=== PATIENT | female | born 1960 | race Caucasian/White ===

== ENCOUNTER → 2017-12-12 | Outpatient (CLI) | payer BC | LOC: CARD 13:52 | PROVIDERS: ATTEND Internal Medicine Cardiovascular Disease | DX: I10 Essential (primary) hypertension (principal); R07.9 Chest pain, unspecified; R53.83 Other fatigue; E78.2 Mixed hyperlipidemia; R00.2 Palpitations; E13.9 Other specified diabetes mellitus without complications | CPT/HCPCS: 93306 ==

== ENCOUNTER → 2017-12-17 | Outpatient (CLI) | payer BC ==
[~2017-12-17] MED LIST: CATHETER FLUSH 10 ML SYR IV PRN
[2017-12-17 13:38] VITALS: BP 170/100
[2017-12-17 13:47] VITALS: BP 157/97
--- NOTE | 2017-12-17 18:01 | STRESS TEST ---
DATE OF SERVICE: 12/17/2017 EXERCISE MYOVIEW STRESS TEST REPORT REFERRING PHYSICIAN: . Baseline heart rate is 62. Baseline blood pressure 156/79. Baseline EKG is sinus rhythm with no ischemic changes. In summary, the patient was injected with 9.87 mCi of technetium-99 Myoview and the resting images were obtained. Then, the patient started exercising with a baseline heart rate, blood pressure and EKG mentioned above. The patient was able to exercise for a total of 6 minutes on standard [employer] protocol, achieving maximum heart rate of 126. With peak exercise level, EKG was showing minimal nondiagnostic changes. Blood pressure was 174/94. During recovery, heart rate and blood pressure returned to baseline. EKG returned to baseline. The resting and stress images were reviewed and compared in the short axis, horizontal long axis, and vertical long axis views. Review of the images showed breast attenuation affecting the quality of the images. There is decreased uptake involving the whole inferior wall that was noted at the stress images with mild reversibility. SSS is 8, SDS 8, TID value 0.95. On the gated images, the left ventricle appeared to be in normal size with normal contractility. Calculated ejection fraction 71%. CONCLUSION: 1. Fair exercise tolerance, a total of 6 minutes on standard U[employer] protocol, achieving 85% of maximum expected heart rate. 2. Severe hypertensive response to exercise returned to baseline during recovery. 3. Nondiagnostic EKG changes with exercise returned to baseline during recovery. 4. Breast attenuation affecting the quality of the images with questionable ischemia involving the whole anterior wall. 5. Normal left ventricular size with normal contractility. Calculated ejection fraction 71%. Job ID: [id number] DocumentID: [id number] Dictated Date: 12/17/2017 15:25:23 Propeller Tester Date: 12/17/2017 18:00:24 Dictated By: LORENZO CHAPIN MD
== END ==
LOC: CARD 11:20 → EDUNIT# 11:45
PROVIDERS: ATTEND Internal Medicine Cardiovascular Disease
DX: R07.9 Chest pain, unspecified (principal); I10 Essential (primary) hypertension; R00.2 Palpitations; E78.2 Mixed hyperlipidemia; E11.9 Type 2 diabetes mellitus without complications; R53.83 Other fatigue
CPT/HCPCS: 78452; 93017

== ENCOUNTER 2017-12-31 06:51 | Day surgery (SDC) | payer BC ==
[~2017-12-31] VITALS: Ht 160 cm; Wt 100.2 kg
[2017-12-31] VITALS (11 sets, daily range): BP systolic 107–164; BP diastolic 69–93
[2017-12-31] MEDS ORDERED: NS IV 1000 ML 1,000 ML ONE (06:54)
[2017-12-31] MEDS ORDERED: LIDOCAINE 1% INJ 50 ML (XYLOCAINE) VIAL ONE (06:54)
[2017-12-31] MEDS ORDERED: HEParin (CATH LAB) 2,000 ML IV ONE (06:54)
[2017-12-31] MEDS ORDERED: NS IV 1000 ML 1,000 ML IV SCH ×2 (07:15→08:30)
--- NOTE | 2017-12-31 07:23 | Diagnostic Imaging Report ---
CHEST 1 VIEW, AP/PA ONLY Indication: Hypertension. Preop evaluation. Comparison: None available. Findings: No focal airspace disease in the visualized lungs. Please note that the posterior lower lobes are poorly evaluated by portable radiography. No pleural effusion or pneumothorax. Heart is borderline enlarged. Impression: No acute cardiopulmonary process by portable radiography. Dictated by: Dictated on workstation # [id number]
[2017-12-31 07:29] LABS: HEMOGLOBIN 13.9 G/DL (11.5-16.0); MEAN PLATELET VOLUME 10.3 FL (7.4-10.4); RED BLOOD COUNT 4.91 10^6/uL (4.35-5.85); RED CELL DISTRIBUTION WIDTH 14.3 % (10.0-14.5); WHITE BLOOD COUNT 7.6 10^3/uL (4.3-11.0)
[2017-12-31] MEDS ORDERED: METF500T4 PO (07:32)
[2017-12-31] MEDS ORDERED: LOSA100T28 PO (07:32)
[2017-12-31] MEDS ORDERED: ASPI-983 PO (07:32)
[2017-12-31] MEDS ORDERED: ATOR10TA66 PO (07:32)
[2017-12-31] MEDS ORDERED: AMLO5TAB2 PO (07:32)
[2017-12-31] MEDS ORDERED: METO50TA15 PO (07:32)
[2017-12-31 07:38] LABS: PROTHROMBIN TIME PATIENT 13.4 SEC (12.2-14.7)
[2017-12-31 07:46] LABS: ALANINE AMINOTRANSFERASE 21 U/L (0-55); ALBUMIN 4.3 GM/DL (3.2-4.5); ALKALINE PHOSPHATASE 74 U/L (40-136); BILIRUBIN,TOTAL 0.8 MG/DL (0.1-1.0); BUN/CREATININE RATIO 19; CALCIUM 9.5 MG/DL (8.5-10.1); CARBON DIOXIDE 22 MMOL/L (21-32); CHLORIDE 106 MMOL/L (98-107); CREATININE SERUM 0.78 MG/DL (0.60-1.30); GFR ESTIMATED > 60; GLUCOSE 148 MG/DL (70-105); POTASSIUM 3.8 MMOL/L (3.6-5.0); SODIUM 141 MMOL/L (135-145); TOTAL PROTEIN 7.3 GM/DL (6.4-8.2)
[2017-12-31] MEDS ORDERED: MIDAZOLAM 5 MG/5 ML (VERSED) VIAL ONE (07:53)
[2017-12-31] MEDS ORDERED: fentaNYL INJECTION 100 MCG/2 ML AMP ONE (07:55)
[2017-12-31] MEDS ORDERED: INFLUENZA TRIvalent 2017-2018 0.5 ML/45 MCG SYR IM ONE (08:00)
--- NOTE | 2017-12-31 08:05 | Cardiac Procedure Note-CS/ASA ---
Pre-Procedure Note Pre-Op Procedure Note H&P Reviewed The H&P was reviewed, patient examined and no changes noted. Date H&P Reviewed: Dec 31, 2017 Time H&P Reviewed: 08:05 Conscious Sedation Pre-Proced Time Reviewed: 08:05 ASA Class: 3 Airway Mallampati Classification: ([place] appropriate class) I. II. III, IV Lungs Heart ASA score ASA 1: a normal healthy patient ASA 2: a patient with a mild systemic disease (mid diabetes, controlled hypertension, obesity x ASA 3: a patient with a severe systemic disease that limits activity (angina , COPD, prior Myocardial infarction) ASA 4: a patient with an incapacitating disease that is a constant threat to life (CHF, renal failure) ASA 5: a moribund patient not expected to survive 24 hrs. (ruptured aneurysm) ASA 6: a declared brain patient whose organs are being harvested. For emergent operations, add the letter E after the classification Grade 3 Sedation Plan: Analgesia, Amnesia, Plan communicated to team members, Discussed options with patient/fam, Discussed risks with patient/fam Note The patient is an appropriate candidate to undergo the planned procedure, sedation, and anesthesia. The patient immediately re-assessed prior to indication. LORENZO CHAPIN MD Dec 31, 2017 08:05
[2017-12-31] MEDS ORDERED: PATIENT MAY USE OWN MEDS, ALL PO SCH (08:30)
--- NOTE | 2017-12-31 08:33 | Discharge Inst-Post CATH ---
Discharge Inst-CATH Post Cardiac Cath D/C Inst Follow Up/Plan Hold Metformin for [address] Aguillon's office in 2-4 weeks CARDIAC CATH DISCHARGE INSTRUCTIONS *Hold Metformin for 48 hours post heart cath. ACTIVITY * Go Home directly and rest. * Limit activity of the leg (or wrist if it was used) for 7 days including aerobics, swimming, jogging, bicycling, etc. * Restrict stair-climbing for 7 days if possible, if not, climb up with your non -cath leg, then bring together on the same step. * Avoid lifting, pushing, pulling or excessive movement of the affected extremity for 7 days. * Customary sexual activity may be resumed after 2 days-use caution not to use a position that strains or causes pain to the affected extremity. * No driving for 24 hours. * NO SMOKING. * Avoid straining for bowel movements for 7 days. * Gentle walking on level ground is allowed. * Returning to work will depend on the type of procedure and the results. Your doctor will discuss this with you. CALL YOUR DOCTOR FOR ANY OF THE FOLLOWING: *If bleeding from the puncture site occurs- Apply gentle pressure to site with clean cloth and call your doctor or EMS. * If a knot or lump forms under the skin, increases in size, or causes pain. * If bruising appears to be worsening or moving further down your leg instead of disappearing. * Temperature above 101 F. CARE OF YOUR GROIN INCISION; * Bruising or purple discoloration of the skin near the puncture site is common. * You may shower only, no bathtub bathing for 5 days. Be careful to avoid slipping as your leg may feel stiff. * If a closure device was used on your femoral artery, please see the attached guide regarding care of the device and your leg. * REMOVE the dressing from your groin the next day after your procedure in the shower. CARE OF YOUR WRIST INCISION; * Bruising or purple discoloration of the skin near the puncture site is common. * You may shower. * DO NOT submerge wrist. * Remove dressing in 24 hours. LORENZO AGUILLON MD Dec 31, 2017 08:33
--- NOTE | 2017-12-31 08:36 | Cardiac Cath Report ---
Cardiac Cath Report Physician (s)/Carpet Cleaner (s) Physician LORENZO CHAPIN MD Pre-Procedure Diagnosis Pre-Procedure Diagnosis: Coronary artery disease Post-Procedure Note Procedure Start Date: Dec 31, 2017 Name of Procedure: [facility] Findings/Procedure Note PROCEDURE NOTE: After explaining the procedure to the patient, all pros and cons were explained, all questions were answered. The patient signed the consent and then she was placed on the cardiac catheterization laboratory. The patient was placed on the cardiac catheterization laboratory. Groin was prepped SL fashion local anesthesia was used. Sheath placed in the right femoral artery. Tremaine right and left catheter were used to access the coronary system. Tremaine right was used to cross the valve and left ventricular pressure was measured Left ventriculogram was not done At the end of the procedure the sheath was removed. Closure device was used FINDINGS: Hemodynamics LV 136/17, end-diastolic pressure of 17 Aorta 134/68 mean of 97 ANATOMY: Left Main is free of obstructive disease Left Anterior Descending has mild disease at the mid to distal portion nonobstructive disease Left Circumflex is free of obstructive disease Right Coronory Artery is free of obstructive disease LV Gram was not done, pressure was measured no significant gradient across the aortic valve CONCLUSION: 1. Mild coronary artery disease in the LAD nonobstructive disease otherwise no significant disease noted 2. Mildly elevated left ventricular end-diastolic pressure DISCUSSION AND RECOMMENDATION: Medical therapy is recommended no intervention is warranted Anesthesia Type: Conscious Sedation Estimated blood loss (mL): 10 ml Contrast Amount: 23 ml Total Radiation Dose: 223 mGy Post-Procedure Diagnosis Post-operative diagnosis: Coronary artery disease Hypertension Hyperlipidemia Diabetes mellitus LORENZO CHAPIN MD Dec 31, 2017 08:36
== END 2017-12-31 13:10 | disposition home or self-care (01) ==
LOC: CATH 06:51 → SURG 08:47 → CATH 13:10
PROVIDERS: ATTEND Internal Medicine Cardiovascular Disease
DX: I25.10 Atherosclerotic heart disease of native coronary artery without angina pectoris (principal); Z11.2 Encounter for screening for other bacterial diseases; I10 Essential (primary) hypertension; E78.2 Mixed hyperlipidemia; E11.9 Type 2 diabetes mellitus without complications; Z79.84 Long term (current) use of oral hypoglycemic drugs; Z79.82 Long term (current) use of aspirin; Z79.899 Other long term (current) drug therapy; E66.9 Obesity, unspecified; Z68.39 Body mass index [BMI] 39.0-39.9, adult; I65.29 Occlusion and stenosis of unspecified carotid artery
CPT/HCPCS: 36415; 71045; 80053; 85027; 85610; 85730; 87081; 93458

== ENCOUNTER 2018-01-04 09:53 | Emergency (ER) | payer BC ==
[~2018-01-04] VITALS: Ht 160 cm; Wt 100.2 kg
[~2018-01-04 09:53] MED LIST changes: +AMLO5TAB2 PO; +ASPI-983 PO; +ATOR10TA66 PO; -CATHETER FLUSH 10 ML SYR IV PRN; +LOSA100T28 PO; +METF500T4 PO; +METO50TA15 PO
[2018-01-04 10:57] VITALS: BP 145/73
--- NOTE | 2018-01-04 11:38 | ED General ---
General Chief Complaint: Skin/Wound Problems Stated Complaint: LUMP AT HEART CATH INCISION Nursing Triage Note: PT HERE WITH C/O LUMP AT CATH SITE ON RIGHT GROIN. CATH WAS ON 12/31/17 Nursing Sepsis Screen: No Definite Risk Source of Information: Patient, Family (daughter) Exam Limitations: No Limitations History of Present Illness Date Seen by Provider: Jan 04, 2018 Time Seen by Provider: 11:38 Initial Comments 57-year-old female patient presents to the emergency department with complaints of a lump and pain to the right groin catheter site. Heart catheterization was done on 12/31/[address] Aguillon. Patient did take Tylenol yesterday with improvement in symptoms. Patient is scheduled for follow-up on January [address] Aguillon. Reports that she initially did not plan on coming to the emergency department, but states her home instructions said to come to the ER if any increased swelling or pain. Timing/Duration: 1-2 Days Modifying Factors: worse with Movement, worse with Other (worse with palpation) Allergies and Home Medications Allergies Coded Allergies: No Known Drug Allergies (Unverified , 12/31/17) Home Medications Amlodipine Besylate 5 Mg Tablet, 5 MG PO DAILY, (Reported) Aspirin 81 Mg Tablet.dr, 81 MG PO DAILY, (Reported) Atorvastatin Calcium 10 Mg Tablet, 10 MG PO DAILY, (Reported) Losartan Potassium 100 Mg Tablet, 100 MG PO DAILY, (Reported) Metoprolol Tartrate 50 Mg Tablet, 50 MG PO BID, (Reported) Tramadol HCl 50 Mg Tablet, 50 MG PO Q4H PRN for pain Prescribed by: [facility] VANESSA on 01/04/18 1226 Constitutional: No chills, No diaphoresis, No dizziness, No fever, No malaise, No weakness EENTM: no symptoms reported Respiratory: No cough, No dyspnea on exertion, No short of breath Cardiovascular: No chest pain, No edema, No palpitations Gastrointestinal: No abdominal pain, No constipation, No diarrhea, No loss of appetite, No melena, No nausea, No vomiting Genitourinary: see HPI, No decreased output, No discharge, No dysuria, No frequency, No hematuria, No incontinence, pain (right groin pain, swelling, and mild bruising) Musculoskeletal: see HPI, other (right groin pain, swelling, and mild bruising) Skin: see HPI, change in color (mild bruising of the right groin), lumps ( right groin) Psychiatric/Neurological: No Symptoms Reported Hematologic/Lymphatic: No Symptoms Reported All Other Systems Reviewed Negative Unless Noted: Yes (Negative excepted noted.) Past Ffcyaoi-Pqztjw-Fvbhsd Hx Patient Social History Recent Foreign Travel: No Contact w/Someone Who Travel: No Recent Infectious Disease Expo: No Recent Hopitalizations: No Physical Abuse: No Sexual Abuse: No Mistreated: No Fear: No Seasonal Allergies Seasonal Allergies: No Surgeries History of Surgeries: Yes (HEART CATH. ) Surgeries: Lumpectomy Respiratory History of Respiratory Disorde: No Cardiovascular History of Cardiac Disorders: Yes Cardiac Disorders: High Cholesterol, Hypertension Neurological History of Neurological Disord: No Reproductive System Sexually Transmitted Disease: No HIV/AIDS: No Genitourinary History of Genitourinary Disor: No Gastrointestinal History of Gastrointestinal Di: No Psychosocial Suicide Risk Score: 0 Integumentary History of Skin or Integumenta: No Reviewed Nursing Assessment Reviewed/Agree w Nursing PMH: Yes Family Medical History Significant Family History: No Pertinent Family Hx Physical Exam Vital Signs Vital Signs - First Documented 01/04/18 10:23 Temp 97.6 Pulse 58 Resp 18 B/P (MAP) 139/62 (87) Pulse Ox 97 O2 Delivery Room Air Capillary Refill : Less Than 3 Seconds General Appearance: No Apparent Distress, WD/WN HEENT: PERRL/EOMI, Pharynx Normal Neck: Normal Inspection, Supple Respiratory: Lungs Clear, Normal Breath Sounds, No Accessory Muscle Use, No Respiratory Distress Cardiovascular: Regular Rate, Rhythm, No Edema, No Murmur, Normal Peripheral Pulses Gastrointestinal: Normal Bowel Sounds, No Organomegaly, No Pulsatile Mass, Soft , Tenderness (rt groin tenderness, mild to moderate swelling, and mild ecchymosis. small scab at the puncture site. no evidence of cellulitis.) Back: Normal Inspection Extremity: Normal Capillary Refill, Normal Range of Motion, No Calf Tenderness , No Pedal Edema, Other (rt groin tenderness, mild to moderate swelling, and mild ecchymosis. small scab at the puncture site. no evidence of cellulitis.) Neurologic/Psychiatric: Alert, Oriented x3, No Motor/Sensory Deficits, Normal Mood/Affect Skin: Normal Color, Warm/Dry, No Cool, No Cyanosis, No Mottled, Other (rt groin tenderness, mild to moderate swelling, and mild ecchymosis. small scab at the puncture site. no evidence of cellulitis.) Progress/Results/Core Measures Suspected Sepsis Recent Fever Within 48 Hours: No Infection Criteria Present: None New/Unexplained Altered Menta: No Sepsis Screen: No Definite Risk Sepsis Diagnosis: SIRS Temperature:97.6 Pulse: 62 Respiratory Rate: 18 Blood Pressure 145 /73 Mean: 97 Results/Orders My Orders Orders - [facility] VANESSA Us Right Low Ext [id number] (01/04/18 11:30) Acetaminophen Tablet (Tylenol Tablet) (01/04/18 11:51) Alprazolam Tablet (Xanax Tablet) (01/04/18 13:30) Vital Signs/I&O Vital Sign - Last 12Hours 01/04/18 01/04/18 01/04/18 10:23 10:57 13:28 Temp 97.6 Pulse 58 62 63 Resp 18 18 18 B/P (MAP) 139/62 (87) 145/73 (97) 126/95 Pulse Ox 97 99 99 O2 Delivery Room Air Capillary Refill : Less Than 3 Seconds Blood Pressure Mean: 97 Diagnostic Imaging Diagonstic Imaging: Ultrasound Plain Films/CT/US/NM/MRI: leg (RLE arterial doppler) Comments COMPARISON: There are no prior studies available for comparison. FINDINGS: There is good arterial blood flow in the common femoral and superficial femoral arteries. There is no sign of a pseudoaneurysm or an AV fistula. The common femoral artery, common femoral vein, and superficial femoral vein were difficult to compress, but there did seem to be good blood flow. There is no sign of thrombus formation. There is no evidence for a hematoma either. IMPRESSION: There is no acute vascular abnormality in the right groin. Dictated on workstation # [id number] Reviewed: Reviewed by Me (radiology report reviewed by me) Departure Communication (Admissions) Progress Notes Diagnostic findings discussed with the patient. Plan for discharge to home with follow-up as an outpatient with Dr. Aguillon as previously scheduled or sooner if needed. Patient to return immediately to the emergency department for any concerns or worsening of symptoms. Impression Impression: Primary Impression: Groin hematoma Qualified Codes: S30.1XXA - Contusion of abdominal wall, initial encounter Additional Impression: Status post cardiac catheterization Disposition: 01 HOME, SELF-CARE Condition: Improved Departure-Patient Inst. Decision time for Depature: 12:23 Referrals: LORENZO AGUILLON MD, FLOYD R MD (PCP/Family) Primary Care Physician Patient Instructions: HEMATOMA Add. Discharge Instructions: All discharge instructions reviewed with patient and/or family. Voiced understanding. Continue usual home medications. Tylenol extra strength over- the-counter as directed for pain. If needed you may use the prescribed pain medication for pain. Ice packs alternating with a heating pad or pack as needed for pain. Expect to see more bruising in the groin and/or the thigh as the blood comes to the surface. Continue all other orders and instructions by Dr. Aguillon. Follow-up with Dr. Aguillon as an outpatient as previously scheduled or sooner if needed. Return to the emergency department immediately for worsened pain, swelling, redness, fever, drainage, or any other concerns. Scripts Tramadol HCl (Tramadol HCl) 50 Mg Tablet 50 MG PO Q4H Y for pain, #14 TAB 0 Refills Prov: [facility] VANESSA 01/04/18 MER[facility] VANESSA Jan 04, 2018 11:38
[2018-01-04] MEDS ORDERED: ACETAMINOPHEN 500 MG TAB (TYLENOL) PO STA (11:51)
[2018-01-04] MEDS ORDERED: TRAM50TA2 PO (12:26)
--- NOTE | 2018-01-04 12:37 | Diagnostic Imaging Report ---
EXAMINATION: Right lower extremity arterial Doppler. INDICATION: Leg pain. TECHNIQUE: Spectral and color flow imaging of the arterial system of the right groin was performed. By history, the patient underwent a cardiac catheterization procedure on 12/31/2017. At this time, she now complains of pain in the right groin. COMPARISON: There are no prior studies available for comparison. FINDINGS: There is good arterial blood flow in the common femoral and superficial femoral arteries. There is no sign of a pseudoaneurysm or an AV fistula. The common femoral artery, common femoral vein, and superficial femoral vein were difficult to compress, but there did seem to be good blood flow. There is no sign of thrombus formation. There is no evidence for a hematoma either. IMPRESSION: There is no acute vascular abnormality of the right groin. Dictated by: Dictated on workstation # [id number]
[2018-01-04 13:28] VITALS: BP 126/95
[2018-01-04] MEDS ORDERED: ALPRAZolam 0.25 MG (XANAX) TAB PO ONE (13:30)
== END 2018-01-04 13:22 | disposition home or self-care (01) ==
LOC: EDUNIT# 09:53 → ER 09:54
DX: S30.1XXA Contusion of abdominal wall, initial encounter (principal); I10 Essential (primary) hypertension; E78.00 Pure hypercholesterolemia, unspecified; Z79.82 Long term (current) use of aspirin; Z98.890 Other specified postprocedural states
CPT/HCPCS: 93926

== ENCOUNTER → 2018-09-28 | Outpatient (CLI) | payer BC ==
[~2018-09-28] MED LIST changes: -AMLO5TAB2 PO; +AMLO5TAB7 PO; -LOSA100T28 PO; +LOSA100T8 PO; +METF-397 PO; -METF500T4 PO; +TRAM50TA2 PO
--- NOTE | 2018-09-29 10:59 | Diagnostic Imaging Report ---
EXAMINATION: Ultrasound of the right breast INDICATION: Abnormal mammogram The diagnostic mammogram performed earlier today noted an area of architectural distortion in the retroareolar region of the right breast. On this exam there is no discrete mass evident in this area. There is no significant shadowing identified either. I suspect that the architectural distortion seen on the mammogram was related to the patient's prior biopsy. However I would recommend that comparison to more distant mammograms be performed for further evaluation. IMPRESSION: There is no evidence of malignancy. Recommendations as above. ACR BI-RADS Category 0: Incomplete. (Needs additional imaging evaluation). Dictated by: Dictated on workstation # [id number]
--- NOTE | 2018-09-30 21:09 | Diagnostic Imaging Report ---
INDICATION: Segmental fibroadenosis. EXAMINATION: Digital mammogram bilateral diagnostic with 3-D tomosynthesis. The current study was also evaluated with a Computer Aided Detection (CAD) system. This study was compared to the prior exam of 04/10/2017. Reportedly, the patient has a diagnosis of segmental fibroadenosis. FINDINGS: The fibroglandular tissue in both breasts is heterogeneously dense. This does limit the sensitivity of this exam. There does appear to be an area of architectural distortion in the 10-11 o'clock position of the right breast in the retroareolar region. Reportedly, the patient has had a prior biopsy in this area. That alone could account for the architectural distortion. The possibility that there is an underlying malignancy should still be considered, however. Ultrasound will be recommended. There is no primary or secondary sign of malignancy noted otherwise. IMPRESSION: Ultrasound will be recommended for further evaluation of the area of architectural distortion in the lateral retroareolar region of the right breast. ACR BI-RADS Category 0: Incomplete. (Needs additional imaging evaluation). Result letter will be mailed to the patient. Note: At least 10% of breast cancer is not imaged by mammography. Dictated by: Dictated on workstation # [id number]
== END ==
LOC: RAD 13:37
PROVIDERS: ATTEND Family Medicine
DX: N60.29 Fibroadenosis of unspecified breast (principal); N64.89 Other specified disorders of breast
CPT/HCPCS: 77066

== ENCOUNTER → 2018-10-15 | Outpatient (CLI) | payer BC ==
[~2018-10-15] MED LIST changes: +GADOBUTROL 15 MMOL/15 ML (GADAVIST) VIAL IV ONE
[2018-10-15 09:51] LABS: BUN/CREATININE RATIO 19; CREATININE SERUM 0.79 MG/DL (0.60-1.30); GFR ESTIMATED > 60
--- NOTE | 2018-10-15 19:55 | Diagnostic Imaging Report ---
EXAMINATION: MRI Breast Bilateral W/WO Contrast with 3D CAD. TECHNIQUE: Utilizing a 1.5 Hafsa magnet, the patient was placed in a prone position with an 8-channel dual breast coil utilized. Axial STIR precontrasted and axial T1 fat-sat post contrast high-resolution images were obtained. Axial T2-weighted images precontrast bilaterally were performed as well. Axial vibrant temporal images were obtained pre and post contrast with bolus technique utilizing gadolinium. Images were post contrast immediately and subsequently for 7 minutes. Pre and post contrasted images were then evaluated with CADstream for evaluation of possible angiogenesis. INDICATION: Architectural distortion in the right breast seen on mammogram. COMPARISON: Comparison is made to screening mammograms performed on 04/10/2017 and 01/24/2014, as well as recent diagnostic mammogram and ultrasound performed on 09/28/2018. FINDINGS: LEFT BREAST: The parenchyma is composed of scattered fibroglandular tissue. There is mild background enhancement, with scattered foci of enhancement also related to background. There is no suspicious mass or non-mass enhancement above background. There is no axillary or internal mammary adenopathy. RIGHT BREAST: The parenchyma is composed of scattered fibroglandular tissue. There is mild background enhancement, with scattered foci of enhancement also related to background. There is architectural distortion in the central outer breast at anterior depth, which correlates with findings on mammogram. There is no enhancement in the area of architectural distortion. There is no suspicious mass or non-mass enhancement above background. There is no axillary or internal mammary adenopathy. IMPRESSION: Left Breast: No MR evidence of malignancy. Right breast: No MR evidence of malignancy. There is architectural distortion in the central outer breast which correlates with mammogram findings. There is no enhancement related to this area of architectural distortion, which likely represents scarring given history of prior biopsy/excision. If there is continued concern regarding this area of architectural distortion, tomosynthesis stereotactic biopsy can be performed. FINAL ASSESSMENT: BI-RADS ATLAS Category 2: Benign Dictated by: Dictated on workstation # [id number]
== END ==
LOC: RAD 09:16
PROVIDERS: ATTEND Family Medicine
DX: N64.89 Other specified disorders of breast (principal); R92.8 Other abnormal and inconclusive findings on diagnostic imaging of breast
CPT/HCPCS: 36415; 77059; 82565; 84520

== ENCOUNTER 2018-10-20 06:33 | Outpatient (CLI) | payer BC ==
[~2018-10-20] VITALS: Ht 160 cm; Wt 100.2 kg
[~2018-10-20 06:33] MED LIST changes: -GADOBUTROL 15 MMOL/15 ML (GADAVIST) VIAL IV ONE
[2018-10-20] MEDS ORDERED: METF-397 PO (15:38)
== END 2018-10-20 15:58 | disposition home or self-care (01) ==
LOC: PREOP 06:33
PROVIDERS: ATTEND Surgery
DX: Z01.818 Encounter for other preprocedural examination (principal)

== ENCOUNTER 2018-10-27 12:24 | Day surgery (SDC) | payer BC ==
[~2018-10-27] VITALS: Ht 160 cm; Wt 100.2 kg
[2018-10-27] MEDS ORDERED: LACTATED RINGERS 1,000 ML IV STA (12:33)
[2018-10-27] MEDS ORDERED: LACTATED RINGERS 1,000 ML IV ONE (12:34)
[2018-10-27 12:48] VITALS: BP 137/90
[2018-10-27] MEDS ORDERED: PROPOFOL INJECTION 50 ML IV ONE (15:16)
[2018-10-27] MEDS ORDERED: MIDAZOLAM 2 MG/2 ML (VERSED) VIAL ONE (15:16)
--- NOTE | 2018-10-27 15:21 | Progress Note-Pre Operative ---
Pre-Operative Progress Note H&P Reviewed The H&P was reviewed, patient examined and no changes noted. Date Seen by Provider: Oct 27, 2018 Time Seen by Provider: 15:21 Date H&P Reviewed: Oct 27, 2018 Time H&P Reviewed: 15:21 Pre-Operative Diagnosis: screening colonoscopy, family history colon cancer VICK COHEN DO Oct 27, 2018 15:21
[2018-10-27 15:50] VITALS: BP 107/52
--- NOTE | 2018-10-27 15:50 | Discharge Inst-Simple/Standard ---
Discharge Inst-Standard Patient Instructions/Follow Up Plan of Care/Instructions/FU: repeat colonoscopy in 5 year any issues before that be seen at that time. Activity as Tolerated: Yes Discharge Diet: Regular Diet VICK COHEN DO Oct 27, 2018 15:50
--- NOTE | 2018-10-27 15:52 | Progress Note-Post Operative ---
Post-Operative Progess Note Surgeon (s)/Load Checker (s) Surgeon VICK COHEN DO Load Checker: na Pre-Operative Diagnosis screening colonoscopy, family history colon cancer Post-Operative Diagnosis normal colon Procedure & Operative Findings Date of Procedure 10/27/18 Procedure Performed/Findings colonoscopy Anesthesia Type per hand fur cleaner Estimated Blood Loss Estimated blood loss (mL): none Specimens/Packing Specimens Removed na VICK COHEN DO Oct 27, 2018 15:52
--- NOTE | 2018-10-27 16:08 | Anesthesia-General Post-Op ---
MAC Patient Condition Mental Status/LOC: Same as Preop Cardiovascular: Satisfactory Nausea/Vomiting: Absent Respiratory: Satisfactory Pain: Controlled Complications: Absent Post Op Complications Complications None Follow Up Care/Instructions Patient Instructions None needed. Anesthesiology Discharge Order Discharge Order Patient is doing well, no complaints, stable vital signs, no apparent adverse anesthesia problems. No complications reported per nursing. HAVEN CORNEJO CRNA Oct 27, 2018 16:08
[2018-10-27 16:30] VITALS: BP 146/97
[2018-10-27 16:45] VITALS: BP 146/97
--- NOTE | 2018-10-28 04:13 | OPERATIVE REPORT ---
DATE OF SERVICE: 10/27/2018 PREOPERATIVE DIAGNOSIS: Family history of colon cancer. POSTOPERATIVE DIAGNOSES: Family history of colon cancer. Normal colon. PROCEDURE: Colonoscopy. SURGEON: Vick Vasquez DO ANESTHESIA: General per UNDERWRITING SALES REPRESENTATIVE. ESTIMATED BLOOD LOSS: None. COMPLICATIONS: None. INDICATIONS: The patient is a 58-year-old female who understands risks and benefits of procedure and wished to proceed with procedure. Consent was signed and on the chart. DESCRIPTION OF PROCEDURE: The patient was taken to the endoscopy suite, placed in left lateral recumbent position. Timeout was performed. Digital rectal exam was performed. There were no palpable polyps, mass or ulcerations. The scope was inserted into the rectum and advanced all the way into the cecum without difficulty. There were no polyps, mass or ulceration of the cecum, ascending, transverse, descending and sigmoid colon. No polyps, mass or ulcerations. Once in the rectum, scope was retroflexed noting no other pathology. Scope was returned to its normal position, slowly withdrawn until completely removed. The patient tolerated the procedure well without any complications and taken to recovery room in stable condition. RECOMMENDATIONS: The patient will need repeat colonoscopy in 5 years. If any issues before that, she should be seen at that time. Job ID: [id number] DocumentID: [id number] Dictated Date: 10/27/2018 15:53:40 Budget Clerk Date: 10/28/2018 04:12:55 Dictated By: VICK VASQUEZ DO
== END 2018-10-27 16:46 | disposition home or self-care (01) ==
LOC: ENDO 12:24
PROVIDERS: ATTEND Surgery
DX: Z12.11 Encounter for screening for malignant neoplasm of colon (principal); Z80.0 Family history of malignant neoplasm of digestive organs; I10 Essential (primary) hypertension; E11.9 Type 2 diabetes mellitus without complications; E78.2 Mixed hyperlipidemia; Z79.82 Long term (current) use of aspirin; Z79.84 Long term (current) use of oral hypoglycemic drugs; Z79.899 Other long term (current) drug therapy